=== PATIENT | female | born 1990 | race Caucasian/White ===

== ENCOUNTER 2016-07-31 23:57 | Emergency (ER) | payer OTHER ==
[~2016-07-31] VITALS: Ht 160 cm; Wt 70.9 kg
[2016-08-01 01:32] LABS: APPEARANCE,URINE CLOUDY (CLEAR); GLUCOSE, URINE (UA) NEGATIVE (NEGATIVE); OCCULT BLOOD,URINE NEGATIVE (NEGATIVE); PH,URINE 6.5 (5.0-8.0); PROTEIN,URINE SEE CONFIRM (NEGATIVE)
[2016-08-01 01:34] LABS: ADD UA MICROSCOPIC YES; LEUKOCYTE ESTERASE ,URINE NEGATIVE (NEGATIVE)
[2016-08-01 01:38] LABS: SULFOSALICYLIC ACID,URINE 1+ (Negative)
[2016-08-01 01:39] LABS: RBC,URINE 0-2 /HPF (0-2); SQUAMOUS EPITHELIAL CELL,UR Moderate /LPF (None Seen)
[2016-08-01 01:44] LABS: BASOPHILS % (AUTO) 0.2 % (0.0-2.0); EOSINOPHILS % (AUTO) 0.2 % (1.0-6.0); HEMATOCRIT 42.6 % (36-46); HEMOGLOBIN 14.2 g/dL (12.0-16.0); LYMPHOCYTES # (AUTO) 0.6 K/uL (1.0-4.8); LYMPHOCYTES % (AUTO) 6.4 % (22.0-44.0); MEAN CORPUSCULAR HGB CONC 33.3 G/dL (31.0-37.0); MEAN CORPUSCULAR VOLUME 84 fL (80-100); MONOCYTES # (AUTO) 0.3 K/uL (0.1-1.0); MONOCYTES % (AUTO) 2.9 % (2.0-9.0); NEUTROPHILS # (AUTO) 8.5 K/uL (1.8-7.7); NEUTROPHILS % (AUTO) 90.3 % (40.0-70.0); PLATELET COUNT (AUTO) 224 K/uL (150-450); RED BLOOD CELL COUNT(AUTO) 5.07 MIL/uL (4.00-5.20); RED CELL DISTRIBUTION WIDTH 13.7 % (11.5-14.5); WHITE BLOOD COUNT (AUTO) 9.4 K/uL (4.5-11.0)
[2016-08-01 02:05] LABS: ALANINE AMINOTRANSFERASE 198 U/L (12-78); ALBUMIN 3.9 g/dL (3.4-5.0); ANION GAP 11 mmol/L (8-16); ASPARTATE AMINOTRANSFERASE 63 U/L (15-37); BILIRUBIN,TOTAL 1.2 mg/dL (0.1-1.0); CALCIUM, TOTAL 9.2 mg/dL (8.8-10.5); CARBON DIOXIDE 29 mmol/L (22-29); CHLORIDE 96 mmol/L (98-107); CREATININE 0.73 mg/dL (0.60-1.30); GLOMERULAR FILTR. RATE CALC > 60 mL/min (>60); SODIUM SERUM 136 mmol/L (136-145); TOTAL PROTEIN, SERUM 8.3 g/dL (6.4-8.2); UREA NITROGEN, BLOOD 4 mg/dL (7-18)
[2016-08-01 02:06] LABS: POTASSIUM 2.6 mmol/L (3.5-5.1)
[2016-08-01] MEDS ORDERED: PROMETHAZINE HCL 25 MG/ML VIAL ONE (02:28)
[2016-08-01] MEDS ORDERED: POTASSIUM CHLORIDE 20 MEQ ER TABLET PO ONE (02:30)
[2016-08-01] MEDS ORDERED: PROMETHAZINE HCL 25 MG/ML VIAL IM ONE (02:30)
[2016-08-01 03:21] VITALS: BP 119/65
[2016-08-01] MEDS ORDERED: MORPHINE SULFATE 2 MG/ML SYRINGE IVP ONE (04:00)
[2016-08-01] MEDS ORDERED: SODIUM CHLORIDE 0.9% 1,000 ML IV ONE (04:00)
== END 2016-08-01 05:03 | disposition home or self-care (01) ==
LOC: EMS 23:59
DX: K80.20 Calculus of gallbladder without cholecystitis without obstruction (principal)
CPT/HCPCS: 36415; 76705; 80053; 81001; 81002; 83690; 85025; 96360; 99285; J2550; J7030

== ENCOUNTER 2016-09-30 17:56 | Emergency (ER) | payer OTHER ==
[~2016-09-30] VITALS: Ht 160 cm; Wt 75.0 kg
[2016-09-30 18:39] LABS: BASOPHILS % (AUTO) 0.4 % (0.0-2.0); EOSINOPHILS % (AUTO) 3.4 % (1.0-6.0); HEMATOCRIT 39.7 % (36-46); HEMOGLOBIN 12.8 g/dL (12.0-16.0); LYMPHOCYTES # (AUTO) 1.8 K/uL (1.0-4.8); LYMPHOCYTES % (AUTO) 18.3 % (22.0-44.0); MEAN CORPUSCULAR HEMOGLOBIN 27.9 pg (26.0-34.0); MEAN CORPUSCULAR HGB CONC 32.2 G/dL (31.0-37.0); MEAN CORPUSCULAR VOLUME 87 fL (80-100); MONOCYTES # (AUTO) 0.7 K/uL (0.1-1.0); MONOCYTES % (AUTO) 7.2 % (2.0-9.0); NEUTROPHILS # (AUTO) 6.9 K/uL (1.8-7.7); NEUTROPHILS % (AUTO) 70.7 % (40.0-70.0); PLATELET COUNT (AUTO) 261 K/uL (150-450); RED BLOOD CELL COUNT(AUTO) 4.59 MIL/uL (4.00-5.20); RED CELL DISTRIBUTION WIDTH 14.5 % (11.5-14.5); WHITE BLOOD COUNT (AUTO) 9.7 K/uL (4.5-11.0)
[2016-09-30] MEDS ORDERED: ACETAMINOPHEN 500 MG TABLET PO ONE (18:45)
[2016-09-30 19:06] LABS: ANION GAP 7 mmol/L (8-16); CALCIUM, TOTAL 9.1 mg/dL (8.8-10.5); CARBON DIOXIDE 27 mmol/L (22-29); CHLORIDE 103 mmol/L (98-107); CREATININE 0.62 mg/dL (0.60-1.30); GLOMERULAR FILTR. RATE CALC > 60 mL/min (>60); SODIUM SERUM 137 mmol/L (136-145); UREA NITROGEN, BLOOD 5 mg/dL (7-18)
[2016-09-30 19:33] LABS: ALANINE AMINOTRANSFERASE 20 U/L (12-78); ALBUMIN 3.2 g/dL (3.4-5.0); ASPARTATE AMINOTRANSFERASE 12 U/L (15-37); BILIRUBIN,TOTAL 0.3 mg/dL (0.1-1.0); TOTAL PROTEIN, SERUM 7.6 g/dL (6.4-8.2)
[2016-09-30 19:34] LABS: APPEARANCE,URINE CLEAR (CLEAR); GLUCOSE, URINE (UA) NEGATIVE (NEGATIVE); KETONES,URINE NEGATIVE (NEGATIVE); LEUKOCYTE ESTERASE ,URINE SMALL (NEGATIVE); OCCULT BLOOD,URINE TRACE (NEGATIVE); PROTEIN,URINE NEGATIVE (NEGATIVE)
[2016-09-30 19:42] LABS: ADD UA MICROSCOPIC YES
[2016-09-30 19:49] LABS: SQUAMOUS EPITHELIAL CELL,UR Moderate /LPF (None Seen)
[2016-09-30] MEDS ORDERED: POTASSIUM CHLORIDE 20 MEQ ER TABLET PO ONE (20:30)
[2016-09-30] MEDS ORDERED: SODIUM CHLORIDE 0.9% 1,000 ML IV ONE (20:30)
[2016-09-30 21:10] VITALS: BP 117/54
[2016-09-30] MEDS ORDERED: CefTRIAXone 1 GM/DEXTROSE 50 ML IV ONE (21:15)
[2016-09-30] MEDS ORDERED: MORPHINE SULFATE 4 MG/ML SYRINGE IVP ONE (21:30)
[2016-09-30] MEDS ORDERED: ONDANSETRON HCL 4 MG/2 ML VIAL IVP ONE (21:30)
== END 2016-09-30 21:56 | disposition home or self-care (01) ==
LOC: EMS 17:57
DX: O26.92 Pregnancy related conditions, unspecified, second trimester (principal); N23 Unspecified renal colic; N13.30 Unspecified hydronephrosis; E87.6 Hypokalemia; Z3A.18 18 weeks gestation of pregnancy
CPT/HCPCS: 36415; 76805; 80053; 81001; 83690; 84702; 85025; 96365; 96375; 99285; J0696; J2270; J2405; J7030

== ENCOUNTER 2017-02-06 09:45 | Observation (INO) | payer OTHER ==
[~2017-02-06] VITALS: Ht 162.6 cm; Wt 89.4 kg
[2017-02-06] MEDS ORDERED: PREN1TAB80 PO (09:58)
[2017-02-06] MEDS ORDERED: HYDR200T PO (09:58)
[2017-02-06 10:01] VITALS: BP 122/81
[2017-02-06] MEDS ORDERED: RINGERS SOLUTION,LACTATED 1,000 ML IV SCH (14:15)
[2017-02-06] MEDS ORDERED: RINGERS SOLUTION,LACTATED 1,000 ML IV ONE (14:16)
== END 2017-02-06 16:30 | disposition home or self-care (01) ==
LOC: 4S 09:45
PROVIDERS: ADMIT Obstetrics & Gynecology; ATTEND Obstetrics & Gynecology
DX: O46.93 Antepartum hemorrhage, unspecified, third trimester (principal); O62.9 Abnormality of forces of labor, unspecified; O99.013 Anemia complicating pregnancy, third trimester; Z3A.36 36 weeks gestation of pregnancy
CPT/HCPCS: 59025; 96360; G0378; J7120

== ENCOUNTER 2017-02-06 19:14 | Inpatient (IN) | payer OTHER ==
[~2017-02-06] VITALS: Ht 160 cm; Wt 91.6 kg
[~2017-02-06 19:14] MED LIST: HYDR200T PO; PREN1TAB80 PO
[2017-02-23] MEDS ORDERED: OXYTOCIN 30 UNITS/LACT RINGERS 500 ML IV PRN (10:35)
[2017-02-23] MEDS ORDERED: RINGERS SOLUTION,LACTATED 1,000 ML IV PRN (10:35)
[2017-02-23] MEDS ORDERED: CITRIC ACID/SODIUM CITRATE 30 ML SOLUTION UDCUP PO PRN (10:45)
[2017-02-23] MEDS ORDERED: METOCLOPRAMIDE HCL 5 MG/ML 2 ML VIAL IVP PRN (10:45)
[2017-02-23 10:46] VITALS: BP 121/75
[2017-02-23 11:09] LABS: BASOPHILS # (AUTO) 0.02 K/uL (0.00-0.20); BASOPHILS % (AUTO) 0.2 % (0.0-2.0); EOSINOPHILS # (AUTO) 0.04 K/uL (0.00-0.70); EOSINOPHILS % (AUTO) 0.38 % (1.0-6.0); HEMATOCRIT 36.4 % (36-46); HEMOGLOBIN 12.3 g/dL (12.0-16.0); LYMPHOCYTES # (AUTO) 1.5 K/uL (1.0-4.8); MEAN CORPUSCULAR HEMOGLOBIN 26.6 pg (26.0-34.0); MEAN CORPUSCULAR HGB CONC 33.7 G/dL (31.0-37.0); MEAN CORPUSCULAR VOLUME 79 fL (80-100); MONOCYTES # (AUTO) 0.7 K/uL (0.1-1.0); MONOCYTES % (AUTO) 7.7 % (2.0-9.0); NEUTROPHILS # (AUTO) 7.4 K/uL (1.8-7.7); NEUTROPHILS % (AUTO) 76.7 % (40.0-70.0); RED CELL DISTRIBUTION WIDTH 17.6 % (11.5-14.5); WHITE BLOOD COUNT (AUTO) 9.7 K/uL (4.5-11.0)
[2017-02-23 11:37] LABS: RBC MORPHOLOGY COMMENT ABNORMAL RBC MORPH
[2017-02-23] MEDS: RINGERS SOLUTION,LACTATED 1,000 ML IV SCH ×2 (14:51→19:12)
[2017-02-23] MEDS ORDERED: OXYGEN THERAPY IH SCH (20:00)
[2017-02-23] MEDS: FentaNYL CITRATE-PF 100 MCG/2 ML VIAL IVP PRN ×2 (20:21→20:29)
[2017-02-23] MEDS ORDERED: LIDOCAINE HCL/PF 1% 30 ML VIAL ONE (21:08)
[2017-02-23] MEDS ORDERED: LIDOCAINE HCL/PF 1% 30 ML VIAL INJ PRN (22:30)
[2017-02-23] MEDS ORDERED: RINGERS SOLUTION,LACTATED 1,000 ML IV ONE (22:38)
[2017-02-23] MEDS ORDERED: OxyCODONE HCL/ACETAMINOPHEN 5-325 MG TABLET PO PRN ×2 (22:45)
[2017-02-23] MEDS ORDERED: GLYCERIN/WITCH HAZEL LEAF 40 PADS JAR TP PRN (22:45)
[2017-02-23] MEDS ORDERED: MEASLES/MUMPS/RUBELLA VACCINE, LIVE 0.5 ML/VIAL SQ ONE (22:45)
[2017-02-23] MEDS ORDERED: LANOLIN 7 GM OINTMENT TP PRN (22:45)
[2017-02-23] MEDS ORDERED: IBUPROFEN 600 MG TABLET PO PRN (22:45)
[2017-02-23] MEDS ORDERED: BENZOCAINE 20%/MENTHOL 56 GM SPRAY CANISTER TP PRN (22:45)
[2017-02-24] MEDS: HYDROXYCHLOROQUINE SULFATE 200 MG TABLET PO SCH (08:57)
[2017-02-24] MEDS: MAGNESIUM HYDROXIDE SUSPENSION 30 ML UDCUP PO SCH ×2 (08:58→20:50)
[2017-02-24] MEDS ORDERED: IBUP-2070 PO (13:18)
[2017-02-24] MEDS ORDERED: DSS100 PO (13:20)
[2017-02-25] MEDS: HYDROXYCHLOROQUINE SULFATE 200 MG TABLET PO SCH (08:33)
[2017-02-25] MEDS: MAGNESIUM HYDROXIDE SUSPENSION 30 ML UDCUP PO SCH (08:34)
== END 2017-02-25 10:30 | disposition home or self-care (01) | DRG 560 ==
LOC: OBSVTOIN 02-23 08:35 → 4S 02-23 08:35
PROVIDERS: ADMIT Obstetrics & Gynecology; ATTEND Obstetrics & Gynecology
PROC: 10E0XZZ Delivery of Products of Conception, External Approach (ICD-10-PCS; principal; 2017-02-23)
PROC: 10907ZC Drainage of Amniotic Fluid, Therapeutic from Products of Conception, Via Natural or Artificial Opening (ICD-10-PCS; 2017-02-23)
PROC: 0KQM0ZZ Repair Perineum Muscle, Open Approach (ICD-10-PCS; 2017-02-23)
PROC: 00HU33Z Insertion of Infusion Device into Spinal Canal, Percutaneous Approach (ICD-10-PCS; 2017-02-23)
PROC: 3E0234Z Introduction of Serum, Toxoid and Vaccine into Muscle, Percutaneous Approach (ICD-10-PCS; 2017-02-23)
DX: O69.81X0 Labor and delivery complicated by cord around neck, without compression, not applicable or unspecified (principal); O70.1 Second degree perineal laceration during delivery; Z23 Encounter for immunization; Z37.0 Single live birth; Z3A.39 39 weeks gestation of pregnancy
CPT/HCPCS: J2590; J3010; J3490; J7120

== ENCOUNTER 2017-02-27 03:48 | Emergency (ER) | payer OTHER ==
[~2017-02-27] VITALS: Ht 160 cm; Wt 77.3 kg
[~2017-02-27 03:48] MED LIST changes: +DSS100 PO; +IBUP-2070 PO
[2017-02-27 03:51] VITALS: BP 123/75
== END 2017-02-27 04:33 | disposition home or self-care (01) ==
LOC: EMS 03:49
DX: N64.59 Other signs and symptoms in breast (principal)
CPT/HCPCS: 99281

== ENCOUNTER 2021-05-05 15:04 | Emergency (ER) | payer BC, OTHER ==
[~2021-05-05] VITALS: Ht 162.6 cm; Wt 84.0 kg
[2021-05-05] MEDS ORDERED: RINGERS SOLUTION,LACTATED 1,000 ML IV ONE (16:00)
[2021-05-05 16:19] LABS: BASOPHILS % (AUTO) 0.4 % (0.0-2.0); HEMATOCRIT 38.6 % (36-46); HEMOGLOBIN 13.6 g/dL (12.0-16.0); LYMPHOCYTES # (AUTO) 1.4 K/uL (1.0-4.8); LYMPHOCYTES % (AUTO) 13.6 % (22.0-44.0); MEAN CORPUSCULAR HEMOGLOBIN 29.4 pg (26.0-34.0); MEAN CORPUSCULAR HGB CONC 35.3 G/dL (31.0-37.0); MEAN CORPUSCULAR VOLUME 83 fL (80-100); MONOCYTES # (AUTO) 0.8 K/uL (0.1-1.0); MONOCYTES % (AUTO) 7.6 % (2.0-9.0); NEUTROPHILS # (AUTO) 7.8 K/uL (1.8-7.7); NEUTROPHILS % (AUTO) 77.4 % (40.0-70.0); PLATELET COUNT (AUTO) 276 K/uL (150-450); RED BLOOD CELL COUNT(AUTO) 4.62 MIL/uL (4.00-5.20); RED CELL DISTRIBUTION WIDTH 12.9 % (11.5-14.5)
[2021-05-05 16:26] LABS: ANION GAP 10 mmol/L (8-16); CALCIUM, TOTAL 9.4 mg/dL (8.8-10.5); CARBON DIOXIDE 31 mmol/L (22-29); CHLORIDE 106 mmol/L (98-107); GLOMERULAR FILTR. RATE CALC > 60 mL/min (>60); GLUCOSE,RANDOM 104 mg/dL (70-110); POTASSIUM 3.5 mmol/L (3.5-5.1); SODIUM SERUM 147 mmol/L (136-145); UREA NITROGEN, BLOOD 15 mg/dL (7-18)
[2021-05-05] MEDS ORDERED: KETOROLAC TROMETHAMINE 30 MG/ML VIAL IVP ONE (16:30)
[2021-05-05] MEDS ORDERED: ACETAMINOPHEN 500 MG TABLET PO ONE (16:30)
[2021-05-05] MEDS ORDERED: ONDANSETRON HCL 4 MG/2 ML VIAL IVP ONE (16:30)
[2021-05-05 16:31] LABS: APPEARANCE,URINE CLEAR (CLEAR); BILIRUBIN,URINE NEGATIVE (NEGATIVE); GLUCOSE, URINE (UA) NEGATIVE (NEGATIVE); KETONES,URINE TRACE mg/dL (NEGATIVE); LEUKOCYTE ESTERASE ,URINE NEGATIVE (NEGATIVE); NITRATE,URINE NEGATIVE (NEGATIVE); OCCULT BLOOD,URINE SMALL (NEGATIVE); PH,URINE 5.5 (5.0-8.0); PROTEIN,URINE TRACE (NEGATIVE)
[2021-05-05 17:03] LABS: SQUAMOUS EPITHELIAL CELL,UR Many /LPF (None Seen)
[2021-05-05 17:05] LABS: BACTERIA,URINE Few /HPF (None Seen)
[2021-05-05 17:14] VITALS: BP 122/74
== END 2021-05-05 17:40 | disposition home or self-care (01) ==
LOC: EMS 15:04
DX: N20.1 Calculus of ureter (principal); Z88.8 Allergy status to other drugs, medicaments and biological substances
CPT/HCPCS: 36415; 80048; 81001; 84703; 85025; 96361; 96374; 96375; 99284; J1885; J2405; J7120